=== PATIENT | male | born 1990 | race African-American/Black ===

== ENCOUNTER 2016-11-03 19:21 | Emergency (ER) | payer OTHER ==
[~2016-11-03] VITALS: Ht 185.4 cm; Wt 75.0 kg
[~2016-11-03 19:21] MED LIST: BACI500O9 TOP; HYDR-3533 PO
[2016-11-03 19:24] VITALS: BP 117/78; PULSE 53; RESP 12; TEMP 97.8; O2SAT 100
[2016-11-03] MEDS ORDERED: cefTRIAXone 250 MG VIAL IM ONE (21:00)
[2016-11-03] MEDS ORDERED: LIDOCAINE HCL 1% 50 ML VIAL XX ONE (21:00)
[2016-11-03] MEDS ORDERED: AZITHROMYCIN 250 MG TAB PO ONE (21:00)
--- NOTE | 2016-11-03 21:01 | PD ---
HPI Chief Complaint: Complaint Time Seen by Provider: 20:50 Travel History International Travel<30 days: No Contact w/Intl Traveler<30days: No Traveled to known affect area: No History of Present Illness HPI 25-year-old male presents for evaluation of dysuria. Symptoms started 2-3 days ago. He reports a burning sensation when he urinates. Associated with a white urethral discharge. Denies any testicular scrotal pain, skin lesions, abdominal pain, nausea or vomiting, fevers or chills, flank pain. He admits to Being sexually active with approximate 3-4 different women over the past 6 months. He has no other complaints at this time. [facility], [facility] Past Medical History Asthma: Yes Social History Alcohol Use: Yes Tobacco Use: Yes (1 ppd) Substance Use: Yes (marijuana) Allergies-Medications (Allergen,Severity, Reaction): Coded Allergies: No Known Allergies (Unverified , 11/03/16) Reported Meds & Prescriptions Reported Meds & Active Scripts Active No Active Prescriptions or Reported Medications Review of Systems Except as stated in HPI: all other systems reviewed are Neg Physical Exam Narrative GENERAL: Well-developed well-nourished male in no acute distress SKIN: Warm and dry. HEAD: Atraumatic. Normocephalic. EYES: Pupils equal and round. No scleral icterus. No injection or drainage. ENT: No nasal bleeding or discharge. Mucous membranes pink and moist. NECK: Trachea midline. No JVD. CARDIOVASCULAR: Regular rate and rhythm. No murmur appreciated. RESPIRATORY: No accessory muscle use. Clear to auscultation. Breath sounds equal bilaterally. GASTROINTESTINAL: Abdomen soft, non-tender, nondistended. Hepatic and splenic margins not palpable. : No obvious urethral discharge. Normal-appearing scrotum and penis. MUSCULOSKELETAL: No obvious deformities. No edema. NEUROLOGICAL: Awake and alert. No obvious cranial nerve deficits. Motor grossly within normal limits. Normal speech. PSYCHIATRIC: Appropriate mood and affect; insight and judgment normal. Data Data Last Documented VS Vital Signs Date Time Temp Pulse Resp B/P Pulse Ox O2 Delivery O2 Flow Rate FiO2 11/03/16 19:24 97.8 53 12 117/78 100 Room Air Orders Azithromycin (Zithromax) (11/03/16 21:00) Ceftriaxone Inj (Rocephin Inj) (11/03/16 21:00) Lidocaine 1% Inj (50 Ml) (Xylocaine 1% I (11/03/16 21:00) Gc And Chlamydia Pcr (11/03/16 20:58) MDM Medical Decision Making Medical Screen Exam Complete: Yes Emergency Medical Condition: Yes Medical Record Reviewed: Yes Differential Diagnosis Gonococcal urethritis, nongonococcal urethritis, chemical urethritis, cystitis Narrative Course The patient will be treated empirically for chlamydia and gonorrhea. Chlamydia and gonorrhea probes are pending at the time of discharge. Diagnosis Primary Impression: Urethritis Additional Instructions: Have all recent sexual partners tested or STDs at the health department. No intercourse until at least 7 days after you and any partners have been tested and treated. Return for any emergent medical conditions. Med/Other Pt SpecificInfo: No Change to Meds Scripts No Active Prescriptions or Reported Meds Disposition: 01 DISCHARGE HOME Condition: Philip Dawson Nov 03, 2016 21:01
[2016-11-03 23:06] LABS: CHLAMYDIA PCR DETECTED (NOT DETECT); NEISSERIA PCR DETECTED (NOT DETECT)
== END 2016-11-03 21:20 | disposition home or self-care (01) ==
LOC: NEPD 19:21
DX: N34.2 Other urethritis (principal); F17.210 Nicotine dependence, cigarettes, uncomplicated
CPT/HCPCS: 87491; 87591; 96372; 99284; J0696

== ENCOUNTER 2017-04-30 23:40 | Emergency (ER) | payer OTHER ==
[~2017-04-30] VITALS: Ht 180.3 cm; Wt 84.0 kg
[2017-04-30 23:44] VITALS: BP 158/85; PULSE 60; RESP 16; TEMP 98.6; O2SAT 100
--- NOTE | 2017-05-01 02:07 | PD ---
HPI Chief Complaint: Psychiatric Symptoms Time Seen by Provider: 01:46 Travel History International Travel<30 days: No Contact w/Intl Traveler<30days: No Traveled to known affect area: No History of Present Illness HPI 26-year-old black male presents to emergency department under Velez act by PD. The patient had text a friend that he was going to commit suicide by jumping off the bridge. Patient was contacted by police. The patient admits to feeling depressed and suicidal. He denies any homicidal ideation. No toxic ingestions. He states that he has had a lot of issues going on. He states that he had gotten last year and had only lasted approximately 7 months before he from his . They're not currently . He has a 1- year-old daughter which she has not seen for some time. He also has gotten back into another relationship which also has failed. He had been living with his girlfriend and was kicked out today after having an argument. They got and he will be staying with a friend. The patient denies any toxic ingestions. No recent medical complaints. Admits to marijuana use. The patient does note that he has not slept in the last day or so because he has been working a lot. PFSH Past Medical History Narrative Medical Asthma, depression Asthma: Yes Diminished Hearing: No Tetanus Vaccination: < 5 Years Past Surgical History Other Surgery: Yes (L ANKLE) Social History Alcohol Use: Yes Tobacco Use: Yes (1 ppd) Substance Use: Yes (marijuana) Allergies-Medications (Allergen,Severity, Reaction): Coded Allergies: No Known Allergies (Unverified Adverse Reaction, Unknown, 04/30/17) Reported Meds & Prescriptions Reported Meds & Active Scripts Active No Active Prescriptions or Reported Medications Review of Systems General / Constitutional: No: Fever Eyes: No: Visual changes HENT: No: Headaches Cardiovascular: No: Chest Pain or Discomfort Respiratory: No: Shortness of Breath Gastrointestinal: No: Abdominal Pain Genitourinary: No: Dysuria Musculoskeletal: No: Pain Skin: No Rash Neurologic: No: Weakness Psychiatric: Positive: Depression, Suicidal Ideations, Mood Disorder, Substance Abuse, No: Anxiety, Disorder of Thought, Homicidal Ideation Endocrine: No: Polydipsia Hematologic/Lymphatic: No: Easy Bruising Physical Exam Narrative GENERAL: Well-nourished, well-developed patient. SKIN: Warm and dry. HEAD: Normocephalic and atraumatic. EYES: No scleral icterus. No injection or drainage. ENT: No nasal drainage noted. Mucous membranes pink. Airway patent. NECK: Supple, trachea midline. Moves head freely without obvious discomfort. CARDIOVASCULAR: Regular rate and rhythm without murmurs, gallops, or rubs. RESPIRATORY: Breath sounds equal bilaterally. No accessory muscle use. GASTROINTESTINAL: Abdomen soft, non-tender, nondistended. EXTREMITIES: No cyanosis or edema. BACK: Nontender without obvious deformity. No CVA tenderness. NEURO: Patient is alert and oriented. no sensorimotor deficits. Nonfocal. Normal speech. PSYCH: No delusions. No auditory or visual hallucinations. Data Data Last Documented VS Vital Signs Date Time Temp Pulse Resp B/P (MAP) Pulse Ox O2 Delivery O2 Flow Rate FiO2 04/30/17 23:44 98.6 60 16 158/85 (109) 100 Orders Orders Complete Blood Count With Diff (05/01/17 02:02) Comprehensive Metabolic Panel (05/01/17 02:02) Thyroid Stimulating Hormone (05/01/17 02:02) Psych Screen (05/01/17 02:02) Drug Screen, Random Urine (05/01/17 02:02) Alcohol (Ethanol) (05/01/17 02:02) Labs Laboratory Tests Test 05/01/17 02:00 White Blood Count 6.8 TH/MM3 Red Blood Count 4.45 MIL/MM3 Hemoglobin 14.3 GM/DL Hematocrit 41.6 % Mean Corpuscular Volume 93.4 FL Mean Corpuscular Hemoglobin 32.1 PG Mean Corpuscular Hemoglobin Concent 34.4 % Red Cell Distribution Width 13.7 % Platelet Count 212 TH/MM3 Mean Platelet Volume 8.6 FL Neutrophils (%) (Auto) 67.7 % Lymphocytes (%) (Auto) 26.5 % Monocytes (%) (Auto) 5.4 % Eosinophils (%) (Auto) 0.2 % Basophils (%) (Auto) 0.2 % Neutrophils # (Auto) 4.6 TH/MM3 Lymphocytes # (Auto) 1.8 TH/MM3 Monocytes # (Auto) 0.4 TH/MM3 Eosinophils # (Auto) 0.0 TH/MM3 Basophils # (Auto) 0.0 TH/MM3 CBC Comment DIFF FINAL Differential Comment Blood Urea Nitrogen 10 MG/DL Creatinine 0.91 MG/DL Random Glucose 86 MG/DL Total Protein 8.4 GM/DL Albumin 4.5 GM/DL Calcium Level 8.9 MG/DL Alkaline Phosphatase 47 U/L Aspartate Amino Transf (AST/SGOT) 17 U/L Alanine Aminotransferase (ALT/SGPT) 25 U/L Total Bilirubin 0.6 MG/DL Sodium Level 140 MEQ/L Potassium Level 4.2 MEQ/L Chloride Level 105 MEQ/L Carbon Dioxide Level 28.9 MEQ/L Anion Gap 6 MEQ/L Estimat Glomerular Filtration Rate 121 ML/MIN Thyroid Stimulating Hormone 3rd Gen 0.611 uIU/ML Urine Opiates Screen NEG Urine Barbiturates Screen NEG Urine Amphetamines Screen NEG Urine Benzodiazepines Screen NEG Urine Cocaine Screen NEG Urine Cannabinoids Screen POS Ethyl Alcohol Level LESS THAN 3 MG/DL MDM Medical Decision Making Medical Screen Exam Complete: Yes Emergency Medical Condition: Yes Medical Record Reviewed: Yes Interpretation(s) Laboratory Tests Test 05/01/17 02:00 White Blood Count 6.8 TH/MM3 Red Blood Count 4.45 MIL/MM3 Hemoglobin 14.3 GM/DL Hematocrit 41.6 % Mean Corpuscular Volume 93.4 FL Mean Corpuscular Hemoglobin 32.1 PG Mean Corpuscular Hemoglobin Concent 34.4 % Red Cell Distribution Width 13.7 % Platelet Count 212 TH/MM3 Mean Platelet Volume 8.6 FL Neutrophils (%) (Auto) 67.7 % Lymphocytes (%) (Auto) 26.5 % Monocytes (%) (Auto) 5.4 % Eosinophils (%) (Auto) 0.2 % Basophils (%) (Auto) 0.2 % Neutrophils # (Auto) 4.6 TH/MM3 Lymphocytes # (Auto) 1.8 TH/MM3 Monocytes # (Auto) 0.4 TH/MM3 Eosinophils # (Auto) 0.0 TH/MM3 Basophils # (Auto) 0.0 TH/MM3 CBC Comment DIFF FINAL Differential Comment Blood Urea Nitrogen 10 MG/DL Creatinine 0.91 MG/DL Random Glucose 86 MG/DL Total Protein 8.4 GM/DL Albumin 4.5 GM/DL Calcium Level 8.9 MG/DL Alkaline Phosphatase 47 U/L Aspartate Amino Transf (AST/SGOT) 17 U/L Alanine Aminotransferase (ALT/SGPT) 25 U/L Total Bilirubin 0.6 MG/DL Sodium Level 140 MEQ/L Potassium Level 4.2 MEQ/L Chloride Level 105 MEQ/L Carbon Dioxide Level 28.9 MEQ/L Anion Gap 6 MEQ/L Estimat Glomerular Filtration Rate 121 ML/MIN Thyroid Stimulating Hormone 3rd Gen 0.611 uIU/ML Urine Opiates Screen NEG Urine Barbiturates Screen NEG Urine Amphetamines Screen NEG Urine Benzodiazepines Screen NEG Urine Cocaine Screen NEG Urine Cannabinoids Screen POS Ethyl Alcohol Level LESS THAN 3 MG/DL Differential Diagnosis MDM: High Differential diagnoses: Schizophrenia, schizoaffective disorder, bipolar, anxiety, depression, adjustment reaction, mood disorder NOS, ODD, depressive disorder NOS, dementia, dementia with agitation, psychosis NOS, substance induced mood disorder, DMDD, Asperger syndrome, infection,electrolyte abnormality, malingering. Narrative Course Mental health screening discussed with the patient. Psychiatric screen ordered. The patient's been medically cleared. This is medical clearance for psychiatric admission Diagnosis Primary Impression: Medical clearance for psychiatric admission Scripts No Active Prescriptions or Reported Meds Condition: Stable Matheus Arteaga May 01, 2017 02:07
[2017-05-01 02:29] LABS: AUTOMATED NEUTROPHIL # 4.6 TH/MM3 (1.8-7.7); BASOPHIL % 0.2 % (0.0-2.0); EOSINOPHIL % 0.2 % (0.0-4.0); HEMATOCRIT 41.6 % (39.0-51.0); HEMOGLOBIN 14.3 GM/DL (13.0-17.0); LYMPH % 26.5 % (9.0-44.0); LYMPHOCYTE # 1.8 TH/MM3 (1.0-4.8); MEAN CELL VOLUME 93.4 FL (80.0-100.0); MEAN CORPUSCULAR HEMOGLOBIN 32.1 PG (27.0-34.0); MEAN CORPUSCULAR HGB CONC 34.4 % (32.0-36.0); MEAN PLATELET VOLUME 8.6 FL (7.0-11.0); MONO % 5.4 % (0.0-8.0); MONOCYTE # 0.4 TH/MM3 (0-0.9); NEUT % 67.7 % (16.0-70.0); PLATELET COUNT 212 TH/MM3 (150-450); RED BLOOD COUNT 4.45 MIL/MM3 (4.50-5.90); RED CELL DISTRIBUTION WIDTH 13.7 % (11.6-17.2); WHITE BLOOD COUNT 6.8 TH/MM3 (4.0-11.0)
[2017-05-01 02:41] LABS: ALBUMIN 4.5 GM/DL (3.4-5.0); AST (GOT) 17 U/L (15-37); BICARBONATE 28.9 MEQ/L (21.0-32.0); BLOOD UREA NITROGEN 10 MG/DL (7-18); CALCIUM 8.9 MG/DL (8.5-10.1); CHLORIDE 105 MEQ/L (98-107); CREATININE 0.91 MG/DL (0.60-1.30); GLOMERULAR FILTRATION RATE 121 ML/MIN (>89); GLUCOSE,RANDOM 86 MG/DL (74-106); SODIUM (NA) 140 MEQ/L (136-145)
[2017-05-01 02:52] LABS: ALKALINE PHOSPHATASE 47 U/L (45-117); ALT (GPT) 25 U/L (12-78); TOTAL BILIRUBIN ADULT 0.6 MG/DL (0.2-1.0); TOTAL PROTEIN 8.4 GM/DL (6.4-8.2)
[2017-05-01 06:31] VITALS: BP 116/57; PULSE 64; RESP 20; O2SAT 98
--- NOTE | 2017-05-01 08:38 | PD ---
Physical Exam Time Seen by Provider: 08:[address] Powell has evaluated the patient, lifted Velez act and cleared the patient for discharge. Data Data Last Documented VS Vital Signs Date Time Temp Pulse Resp B/P (MAP) Pulse Ox O2 Delivery O2 Flow Rate FiO2 05/01/17 06:33 66 05/01/17 06:31 20 116/57 (76) 98 Room Air 04/30/17 23:44 98.6 Orders Orders Complete Blood Count With Diff (05/01/17 02:02) Comprehensive Metabolic Panel (05/01/17 02:02) Thyroid Stimulating Hormone (05/01/17 02:02) Psych Screen (05/01/17 02:02) Drug Screen, Random Urine (05/01/17 02:02) Alcohol (Ethanol) (05/01/17 02:02) Diet Regular Basic (05/01/17 Breakfast) Ed Discharge Order (05/01/17 08:51) Labs Laboratory Tests Test 05/01/17 02:00 White Blood Count 6.8 TH/MM3 Red Blood Count 4.45 MIL/MM3 Hemoglobin 14.3 GM/DL Hematocrit 41.6 % Mean Corpuscular Volume 93.4 FL Mean Corpuscular Hemoglobin 32.1 PG Mean Corpuscular Hemoglobin Concent 34.4 % Red Cell Distribution Width 13.7 % Platelet Count 212 TH/MM3 Mean Platelet Volume 8.6 FL Neutrophils (%) (Auto) 67.7 % Lymphocytes (%) (Auto) 26.5 % Monocytes (%) (Auto) 5.4 % Eosinophils (%) (Auto) 0.2 % Basophils (%) (Auto) 0.2 % Neutrophils # (Auto) 4.6 TH/MM3 Lymphocytes # (Auto) 1.8 TH/MM3 Monocytes # (Auto) 0.4 TH/MM3 Eosinophils # (Auto) 0.0 TH/MM3 Basophils # (Auto) 0.0 TH/MM3 CBC Comment DIFF FINAL Differential Comment Blood Urea Nitrogen 10 MG/DL Creatinine 0.91 MG/DL Random Glucose 86 MG/DL Total Protein 8.4 GM/DL Albumin 4.5 GM/DL Calcium Level 8.9 MG/DL Alkaline Phosphatase 47 U/L Aspartate Amino Transf (AST/SGOT) 17 U/L Alanine Aminotransferase (ALT/SGPT) 25 U/L Total Bilirubin 0.6 MG/DL Sodium Level 140 MEQ/L Potassium Level 4.2 MEQ/L Chloride Level 105 MEQ/L Carbon Dioxide Level 28.9 MEQ/L Anion Gap 6 MEQ/L Estimat Glomerular Filtration Rate 121 ML/MIN Thyroid Stimulating Hormone 3rd Gen 0.611 uIU/ML Urine Opiates Screen NEG Urine Barbiturates Screen NEG Urine Amphetamines Screen NEG Urine Benzodiazepines Screen NEG Urine Cocaine Screen NEG Urine Cannabinoids Screen POS Ethyl Alcohol Level LESS THAN 3 MG/DL MDM Supervised Visit with DELILAH: No Narrative Course Dr. Powell has evaluated the patient, lifted Rosie vela and cleared the patient for discharge. Patient contracts safety. Denies suicidal or homicidal ideations. Patient will be provided community resource packet to [facility] for follow-up. Has friends and family for support. Patient was medically cleared by alternate provider prior to psych screening. Patient has been evaluated by psychiatry and and is now cleared for discharge. Diagnosis Primary Impression: Adjustment disorder with mixed disturbance of emotions and conduct Referrals: [facility] (Out patient) [facility] Primary Care Physician Psychiatrist [facility] Patient Instructions: General Instructions, Mood Disorders (ED) Additional Instruction: Contract safety to your self and others Follow-up with psychiatry Follow-up with primary care provider Follow-up with Roshan Sanderson Return to the emergency department immediately with worsening of symptoms Med/Other Pt SpecificInfo: No Change to Meds, No Meds Exist/No RX given Scripts No Active Prescriptions or Reported Meds Disposition: 01 DISCHARGE HOME Condition: Stable Gertrude Tucker May 01, 2017 08:38
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
== END 2017-05-01 10:00 | disposition home or self-care (01) ==
LOC: NEPD 23:40
DX: F43.25 Adjustment disorder with mixed disturbance of emotions and conduct (principal); J45.909 Unspecified asthma, uncomplicated; F32.9 Major depressive disorder, single episode, unspecified; F17.210 Nicotine dependence, cigarettes, uncomplicated; F12.90 Cannabis use, unspecified, uncomplicated
CPT/HCPCS: 80053; 80307; 84443; 85025; 99284

== ENCOUNTER 2017-09-25 11:59 | Emergency (ER) | payer OTHER ==
[~2017-09-25] VITALS: Ht 180.3 cm; Wt 70.0 kg
[2017-09-25 12:01] VITALS: BP 154/79; PULSE 70; RESP 16; TEMP 98.5; O2SAT 98
[2017-09-25] MEDS ORDERED: TETANUS/DIPHTHERIA TOXOID ADULT 0.5 ML VIAL IM ONE (13:00)
[2017-09-25] MEDS ORDERED: CLOT1CRE6 TOPICAL (13:48)
[2017-09-25] MEDS ORDERED: BACT800T5 PO (13:48)
--- NOTE | 2017-09-25 13:49 | PD ---
HPI Chief Complaint: Skin Problem Time Seen by Provider: 12:43 Travel History International Travel<30 days: No Contact w/Intl Traveler<30days: No Traveled to known affect area: No History of Present Illness HPI 26-year-old male presents to the emergency department with 2 complaints. His first complaint is a "insect bite" to his left by 2 days. Unknown tetanus status. Denies fever, vomiting. Says the area is only painful to touch. He has peeled the scab off and squeeze some pus from the area. Otherwise he has not taken any medications or try any other treatments to alleviate his symptoms. Symptoms are mild to moderate in severity. No known aggravating or relieving factors. A second complaint is a "crack in the skin of the head of his penis" 1 week with worsening for the past couple days. Says the area is irritating. Says he has history of genital herpes, but this is not like genital herpes outbreaks. Denies penile drainage, swelling. Denies testicular pain or swelling. Unknown exposure to STD. Says that he has burning on urination on and off and relates it to being dehydrated. He has not taken any medications or trying treatments to alleviate the symptoms. No known aggravating or relieving factors. Symptoms are mild to moderate in severity. He has no primary care provider. No known allergies. Denies significant past medical history. Has no other medical complaints. No other modifying factors or associated signs and symptoms. PFSH Past Medical History Medical History: Denies Significant Hx Asthma: Yes Diminished Hearing: No Tetanus Vaccination: Unknown Past Surgical History Other Surgery: Yes (L ANKLE) Social History Alcohol Use: Yes Tobacco Use: Yes (1PPD) Substance Use: Yes (COCAINE) Allergies-Medications (Allergen,Severity, Reaction): Coded Allergies: No Known Allergies (Unverified Adverse Reaction, Unknown, 09/25/17) Reported Meds & Prescriptions Reported Meds & Active Scripts Active Bactrim DS (Sulfamethoxazole-Trimethoprim) 800-160 Mg Tab 1 Tab PO BID 10 Days Clotrimazole Anti-Fungal Topical (Clotrimazole) 1% Cream 1 Applic TOPICAL BID 7 Days Review of Systems Except as stated in HPI: all other systems reviewed are Neg Physical Exam Narrative GENERAL: Well-nourished, well-developed black male patient, in no acute distress ; afebrile, nontoxic SKIN: There is an indurated area to the left anterior thigh which measures about 1.5 cm in diameter. It is nonfluctuant and there is no pointing, but there is a minimal amount of purulent drainage noted. There is a zone of inflammation around it but no lymphangitis. HEAD: Atraumatic. Normocephalic. EYES: Pupils equal and round. ENT: Mucosa pink and moist. NECK: Trachea midline. No lymphadenopathy. CARDIOVASCULAR: Regular rate RESPIRATORY: No accessory muscle use. GASTROINTESTINAL: Flat. GENITOURINARY: Exam done in the presence of a nurse. Circumcised. Testes descended bilaterally without evidence of rotation. No lesions or erythema. No urethral discharge. moist, erythematous area with creamy, yellowish buildup just behind the head of the penis/distal shaft of penis. MUSCULOSKELETAL: No obvious deformities. No clubbing. No cyanosis. No edema. NEUROLOGICAL: Awake and alert. Oriented 3. No obvious cranial nerve deficits. Motor grossly within normal limits. Normal speech. Moves all extremities. 5/5 strength to all extremities. PSYCHIATRIC: Appropriate mood and affect; insight and judgment normal. Data Data Last Documented VS Vital Signs Date Time Temp Pulse Resp B/P (MAP) Pulse Ox O2 Delivery O2 Flow Rate FiO2 09/25/17 12:01 98.5 70 16 154/79 (104) 98 Orders Orders Gc And Chlamydia Pcr (09/25/17 12:55) Urinalysis - C+S If Indicated (09/25/17 12:55) Tetanus/Diphtheria Tox Adult (Tetanus/Di (09/25/17 13:00) Ed Discharge Order (09/25/17 13:34) Wound Culture And Gram Stain (09/25/17 13:34) Urine Culture (09/25/17 13:30) Labs Laboratory Tests Test 09/25/17 13:30 Urine Color YELLOW Urine Turbidity HAZY Urine pH 6.0 Urine Specific [place] 1.024 Urine Protein NEG mg/dL Urine Glucose (UA) NEG mg/dL Urine Ketones NEG mg/dL Urine Occult Blood NEG Urine Nitrite NEG Urine Bilirubin NEG Urine Urobilinogen 4.0 OR GREATER mg/dL Urine Leukocyte Esterase TRACE Urine RBC 2 /hpf Urine WBC 24 /hpf Urine Transitional Epithelial Cells <1 /hpf Urine Bacteria RARE /hpf Microscopic Urinalysis Comment CULTURE INDICATED MDM Medical Decision Making Medical Screen Exam Complete: Yes Emergency Medical Condition: Yes Medical Record Reviewed: Yes Differential Diagnosis Balanitis, genital herpes, cellulitis, abscess Narrative Course 26-year-old male with suspected yeast dermatitis of the penis and cellulitis of the left thigh. The area of the left thigh is without fluctuance, although it does have a very minimal amount of purulent drainage noted. Tetanus updated in the ER. Wound culture pending. I do not suspect urethritis and feel that the patient does not need to be empirically treated at this time. He is complaining of dysuria on and off and relates it to dehydration, as he says he has had in the past. I will check a urinalysis, chlamydia, gonorrhea. I will wait for chlamydia and gonorrhea to result to treat the patient, if needed. 1400: Urinalysis with signs of infection. Reflex to culture. Instructed patient to follow-up with [facility] department. Clotrimazole topical cream, Bactrim prescribed for home. Instructed patient to follow up with primary care provider. Patient verbalizes understanding and agreement with treatment plan. Patient is medically cleared and stable for discharge. Discussed reasons to return to the emergency department. Patient agrees with treatment plan. The patients vital signs are stable and the patient is stable for outpatient follow-up and treatment. Patient discharged home, stable and in no acute distress. Diagnosis Primary Impression: Yeast dermatitis of penis Additional Impression: Cellulitis of left thigh Referrals: [facility] Primary Care Physician [facility] Dept. Patient Instructions: Abscess (ED), Cellulitis (ED), General Instructions, Skin Yeast Infection (ED) Departure Forms: Tests/Procedures, Work Release Enter return to work date: Sep 26, 2017 Additional Instructions: Complete full course of antibiotics Warm compresses to the affected area Keep area clean and dry Ibuprofen or Tylenol as directed and as needed for pain and inflammation Follow-up with primary care provider Return to emergency department immediately with worsening of symptoms Clotrimazole cream as prescribed Use condoms every time you have sex Follow-up with primary care provider Return to the emergency department immediately with worsening of symptoms Med/Other Pt SpecificInfo: Prescription(s) given Scripts Sulfamethoxazole-Trimethoprim (Bactrim DS) 800-160 Mg Tab 1 TAB PO BID for Infection for 10 Days, #20 TAB 0 Refills Prov: Gertrude Tucker [facility] 09/25/17 Clotrimazole Topical (Clotrimazole Anti-Fungal Topical) 1% Cream 1 APPLIC TOPICAL BID for Fungal Infection for 7 Days, #1 TUBE 0 Refills Prov: Gertrude Tucker 09/25/17 Disposition: 01 DISCHARGE HOME Condition: Stable Gertrude Tucker Sep 25, 2017 13:49
[2017-09-25 14:01] LABS: BACTERIA, URINE RARE /hpf; BILIRUBIN, URINE NEG (NEG); BLOOD, URINE NEG (NEG); GLUCOSE,URINE NEG (NEG); KETONE, URINE NEG (NEG); NITRITE,URINE NEG (NEG); TRANSITIONAL EPI CELLS, URINE <1 /hpf; URINE COLOR YELLOW (YELLW/STRAW); URINE LEUKOCYTE ESTERASE TRACE (NEG)
== END 2017-09-25 14:06 | disposition home or self-care (01) ==
LOC: NEPK 11:59
DX: B37.2 Candidiasis of skin and nail (principal); L03.116 Cellulitis of left lower limb; B96.89 Other specified bacterial agents as the cause of diseases classified elsewhere; B95.62 Methicillin resistant Staphylococcus aureus infection as the cause of diseases classified elsewhere; J45.909 Unspecified asthma, uncomplicated; F17.210 Nicotine dependence, cigarettes, uncomplicated; F14.90 Cocaine use, unspecified, uncomplicated; R30.0 Dysuria; E86.0 Dehydration; B00.9 Herpesviral infection, unspecified; Z23 Encounter for immunization
CPT/HCPCS: 81001; 86403; 87070; 87086; 87147; 87186; 87491; 87591; 90471; 90714